=== PATIENT | female | born 1960 | race Caucasian/White ===

== ENCOUNTER 2016-10-25 10:44 | Emergency (ER) | payer SELFPAY ==
[2016-10-25] MEDS ORDERED: IBUPROFEN SUSP 100 MG/5 ML UDCUP PO ONE (11:02)
[2016-10-25] MEDS ORDERED: DEXAMETHASONE 10 MG/ML VIAL IVP ONE (11:34)
[2016-10-25] MEDS ORDERED: AMOXICILLIN/CLAVULANATE POT 875/125 MG TAB PO ONE (11:34)
[2016-10-25] MEDS ORDERED: NS 1,000 ML IV ONE (11:34)
[2016-10-25] MEDS ORDERED: OXYCODONE/APAP 5/325 TAB PO ONE (11:35)
--- NOTE | 2016-10-25 11:39 | EDPHY ---
General - History Smoking Status: Never smoked Narrative: CHIEF COMPLAINT: sore throat HISTORY OF PRESENT ILLNESS: patient's history of sore throat over the past 3 days. This was gradual onset. Constant duration. Mild to moderate 1st now severe. Difficulty eating due to pain. No difficulty breathing. No drooling. Pain radiates into the neck. She has associated neck tenderness and "lump." She has no chest pain or shortness of breath. No fever. No headache. No neck pain or stiffness. No abdominal or urinary complaints. No other associated complaints. Minimal improvement with [id number] medications. REVIEW OF SYSTEMS: Ten systems reviewed and are negative unless otherwise noted in the HPI EXAMINATION General Appearance: Alert, no distress Head: normocephalic, atraumatic Eyes: Pupils equal and round, no conjunctival pallor or injection ENT, Mouth: Mucous membranes moist . Uvula midline. There is extensive erythema and exudate on bilateral tonsils. The tonsils are symmetric and without abscess. Airway is widely patent. No trismus. Neck: Normal inspection, supple, non-tender . Anterior cervical lymphadenopathy bilaterally. Respiratory: Lungs are clear to auscultation . No wheezing, rhonchi or crackles. Cardiovascular: Regular rate and rhythm . No murmur. Pulses intact distally. Gastrointestinal: Abdomen is soft and nontender . No splenomegaly Neurological: A&O, nonfocal, normal gait Skin: Warm and dry, no rash Extremities: Nontender, no pedal edema Psychiatric: Mood and affect normal DIFFERENTIAL DIAGNOSES: Including but not limited to strep pharyngitis, viral pharyngitis, tonsillitis , Tushar's angina MDM: 11:35 a.m. acute pharyngitis with positive rapid strep test. no trismus. There is symmetry of the tonsils and no evidence of abscess. She does have exudates and significant erythema. Because she has been able to drink less frequently the past 2 days, I will provide IV fluid resuscitation, IV Decadron for the swelling and start her antibiotics here. She will be discharged home with antibiotics and pain medication along with short course of steroids. Follow up with primary care physician for definitive care. SUPERVISION: This patient was independently evaluated without the aide of supervising physician. (Jone Cabral) Medical Decision Making: I did not see this patient while she was in the emergency department. However her care was discussed with the PA while the patient was in the department. I agree with treatment plan and management (Umberto Nur) - Objective Vital Signs: Initial Vital Signs Temperature (C) 36.8 C 10/25/16 10:46 Heart Rate 101 H 10/25/16 10:46 Respiratory Rate 18 10/25/16 10:46 Blood Pressure 154/105 H 10/25/16 10:46 O2 Sat (%) 94 10/25/16 10:46 O2 Delivery Mode Room Air Allergies/Adverse Reactions: latex [Latex] Allergy (Mild, Verified 10/25/16 10:45) Rash Home Medications: Medication Instructions Recorded Amoxicillin/Clavulanate Pot 875 mg PO BID #20 tab 10/25/16 [Augmentin 875 MG TAB (*)] Hydrocodone/APAP 5/325 [Peshtigo 1 - 2 tab PO Q4H PRN #10 tab 10/25/16 5/325 (*)] predniSONE [Deltasone] 40 mg PO DAILY #8 tablet 10/25/16 Medications Given: Discontinued Medications Amoxicillin/Clavulanate Potassium (Augmentin 875mg) 875 mg PO EDNOW ONE PRN Reason: Protocol Stop: 10/25/16 11:35 Last Admin: 10/25/16 11:50 Dose: 875 mg Dexamethasone (Decadron Injection) 10 mg IVP EDNOW ONE Stop: 10/25/16 11:35 Last Admin: 10/25/16 11:55 Dose: 10 mg Sodium Chloride (Ns) 1,000 mls @ 0 mls/hr IV ONCE ONE PRN Reason: Wide Open Stop: 10/25/16 11:35 Last Admin: 10/25/16 11:55 Dose: 1,000 mls Ibuprofen (Motrin Oral Solution) 600 mg PO EDNOW ONE Stop: 10/25/16 11:03 Last Admin: 10/25/16 11:06 Dose: 600 mg Oxycodone/Acetaminophen (Percocet 5/325) 1 tab PO EDNOW ONE Stop: 10/25/16 11:36 Last Admin: 10/25/16 11:50 Dose: 1 tab Departure - Departure Disposition: Home, Routine, Self-Care Clinical Impression: Strep pharyngitis Condition: Good Instructions: Pharyngitis (ED), Strep Throat (ED) Additional Instructions: Follow-up with primary care physician this week. Return to the ER for worsening pain, difficulty swallowing, difficulty breathing, drooling Referrals: Jesse Tavarez MD [Medical Doctor] - As per Instructions Stand Alone Forms: Work Excuse Prescriptions: Amoxicillin/Clavulanate Pot [Augmentin 875 MG TAB (*)] 875 mg PO BID #20 tab Hydrocodone/APAP 5/325 [Peshtigo 5/325 (*)] 1 - 2 tab PO Q4H PRN #10 tab PRN Reason: Pain, Moderate predniSONE [Deltasone] 40 mg PO DAILY #8 tablet
[2016-10-25 12:32] VITALS: BP 140/89; PULSE 94; RESP 14; TEMP 98.1; O2SAT 90
== END 2016-10-25 13:21 | disposition home or self-care (01) ==
DX: J02.0 Streptococcal pharyngitis (principal); Z91.040 Latex allergy status
CPT/HCPCS: 96374

== ENCOUNTER → 2018-05-20 | Outpatient (CLI) | payer OTHER | LOC: FIMAGING 09:57 | DX: G90.522 Complex regional pain syndrome I of left lower limb (principal) | CPT/HCPCS: 78315; A9503 ==

== ENCOUNTER 2018-06-03 13:49 | Emergency (ER) | payer OTHER ==
--- NOTE | 2018-06-03 16:47 | EDPHY ---
H & P Stated Complaint: sudden swelling, warmths in left lower leg. Time Seen by Provider: 06/03/18 16:22 HPI/ROS: CHIEF COMPLAINT: Left lower extremity swelling and pain HISTORY OF PRESENT ILLNESS: 57-year-old female presents after an injury with continued left lower extremity swelling and pain. 4 months ago, she was walking and struck her left lower leg on a chair railing. Immediate onset of left lower extremity pain and swelling. The pain has persisted. She is being seen by [employer]. She is using a cane to ambulate because of ongoing pain. REVIEW OF SYSTEMS: complete 10 point ROS reviewed and is negative except for the noted elements in the HPI Source: Patient - Personal History Current Tetanus Diphtheria and Acellular Pertussis (TDAP): Unsure - Medical/Surgical History Hx Asthma: No Hx Chronic Respiratory Disease: No Hx Diabetes: No Hx Cardiac Disease: No Hx Renal Disease: No Hx Cirrhosis: No Hx Alcoholism: No Hx HIV/AIDS: No Hx Splenectomy or Spleen Trauma: No Other PMH: hypothyroidism, liver inflammation, back surgery x 2, choly - Social History Smoking Status: Never smoked - Physical Exam Exam: General Appearance: [Alert, pleasant] Eyes: [Pupils equal and round, no conjunctival pallor or injection] ENT, Mouth: [Mucous membranes moist] Neck: [Normal inspection] Respiratory: [Lungs are clear to auscultation] Cardiovascular: [Regular rate and rhythm] Gastrointestinal: [Abdomen is soft and nontender] Neurological: [A&O, nonfocal, normal gait] Skin: [Warm and dry, no rash] Extremities: [Left lower extremity-tenderness and swelling over the anterior aspect of the lower leg, approximately 6 cm in diameter] Psychiatric: [Mood and affect normal] Constitutional: Initial Vital Signs Temperature (C) 36.8 C 06/03/18 13:53 Heart Rate 84 06/03/18 13:53 Respiratory Rate 16 06/03/18 13:53 Blood Pressure 138/90 H 06/03/18 13:53 O2 Sat (%) 95 06/03/18 13:53 O2 Delivery Mode Room Air Allergies/Adverse Reactions: latex [Latex] Allergy (Mild, Verified 10/25/16 10:45) Rash Home Medications: Medication Instructions Recorded Phentermine HCl 06/03/18 Medical Decision Making - Diagnostics Imaging Results: Lower extremity ultrasound: No DVT Tib-fib x-ray: NAD Imaging: Discussed imaging studies w/ call center recruiter Radiologist, I viewed and interpreted images myself ED Course/Re-evaluation: Old medical record reviewed. She had a bone scan earlier this month the revealed features consistent with chronic regional pain syndrome. Discussed with the patient. She will follow up with Orthopedic surgery as planned and continue physical therapy. Differential Diagnosis: Differential diagnosis includes though it is not limited to fracture, dislocation, tendon disruption, neurovascular compromise. - Data Points Medications Given: Discontinued Medications Acetaminophen (Tylenol) 650 mg PO EDNOW ONE Stop: 06/03/18 17:16 Last Admin: 06/03/18 17:19 Dose: 650 mg Departure - Departure Disposition: Home, Routine, Self-Care Clinical Impression: Leg swelling, Complex regional pain syndrome i of left lower limb Condition: Good Instructions: Contusion in Adults (ED), Complex Regional Pain Syndrome (DC) Additional Instructions: Ibuprofen 600 mg 3 times daily while the pain persists. Keep your appointment with the orthopedic surgeon and with your physical therapist. Referrals: Ken Acosta MD [Medical Doctor] - As per Instructions (Call to make an appointment.)
[2018-06-03] MEDS ORDERED: ACETAMINOPHEN 325 MG TAB PO ONE (17:15)
[2018-06-03 17:20] VITALS: BP 113/88
== END 2018-06-03 17:38 | disposition home or self-care (01) ==
DX: G90.522 Complex regional pain syndrome I of left lower limb (principal); M79.89 Other specified soft tissue disorders; E03.9 Hypothyroidism, unspecified